=== PATIENT | male | born 1995 | race Caucasian/White ===

== ENCOUNTER 2020-11-28 23:44 | Emergency (ER) | payer SELFPAY ==
[2020-11-28 23:44] VITALS: BP 140/100; PULSE 87; RESP 20; TEMP 36.9; O2SAT 98
[2020-11-29] MEDS: LIDOCAINE HCL 1% LOCAL INJ 20 ML VIAL 10 ML INFILTRATE (00:20)
--- NOTE | 2020-11-29 00:28 | ED.ANIMALBIT ---
HPI - Animal Bite General Chief Complaint: Animal Bite Stated Complaint: Dog Bite Source: patient Mode of arrival: ambulatory History of Present Illness HPI narrative: is a 25-year-old male presents with some avulsions and lacerations to his right middle finger after he tried to break up a dog fight and obtained laceration and avulsion injuries to his right middle finger. There is no numbness or tingling has good range of motion and currently no bleeding. complaint: animal bite Onset (ago): hour(s) Animal: dog Related Data Home Medications Medication Instructions Recorded Confirmed lisinopril 10 mg PO DAILY 11/29/20 11/29/20 Allergies Allergy/AdvReac Type Severity Reaction Status Date / Time No Known Allergies Allergy Verified 11/29/20 00:01 Review of Systems Review of Systems: All systems reviewed & are unremarkable except as noted in HPI and below PMFSH Past Medical History Medical History Patient denies medical problems Exam Const: General: no acute distress and alert Orientation/consciousness: patient oriented x3 HENMT: Head: normal to inspection Eyes: Conjunctivae: conjunctivae normal Pupils: Equal, round and reactive pupils present Neck: Neck: normal visual inspection and no lymphadenopathy Chest: Chest palpation & inspection: normal inspection of the chest Resp: Effort & Inspection: normal respiratory effort Auscultation: clear to auscultation bilaterally Cardio: Rate: regular rate Rhythm: regular rhythm GI: GI Palp: Yes Soft to palpation Back/Spine/Pelvis: Back: no CVA tenderness Skin: Other: laceration to the palmar surface of his right middle finger and in between the the right middle and 4th finger lacerations Neuro: General: patient oriented x3, moves all extremities and no meningeal signs Extrem: General: normal to inspection and no pedal edema Course Course Emergency Course: patient tolerated procedure well had sutures placed in the palmar surface of his right middle finger and in between the right middle and 4th finger Procedures Laceration Laceration 1: Date: 11/29/20 Time: 00:31 Site: hand Side (If applicable): right Size (cm): 3 Description: linear Depth: simple, single layer Local Anesthetic: lidocaine 1% Amount of anesthesia used (mL): 5 Pre-repair: wound explored and irrigated ====== Skin Level ====== Skin layer closed with: vicryl Size (cm): 4-0 Number of sutures: 3 ====== Subcutaneous Layer ====== Number of sutures: 3 Technique: simple, interrupted ====== Muscle Layer ====== Size: 4-0 ====== Tendon Layer ====== Critical Care Time Critical Care Time Critical Care Time: No Discharge Plan Discharge Clinical Impression: Laceration Dog bite Qualifiers: Encounter type: initial encounter Qualified Code(s): W54.0XXA - Bitten by dog, initial encounter Patient Disposition: Home, Self-Care Condition: Stable Instructions: Antibiotic Form, Animal Bite (ED), Laceration (ED) Additional Instructions: follow-up with primary care physician in 1 week for suture removal and wound re-evaluation. Prescriptions: New amoxicillin-pot clavulanate [Augmentin] 875-125 mg tablet 1 tablet PO Q12H Qty: 20 RF: 0 No Action lisinopril 10 mg PO DAILY RF: 0 Follow-up/Referrals: Ila Burleson RN [Primary Care Provider] - Time of Disposition: 00:34
[2020-11-29] MEDS: TETANUS,DIPHTHERIA,AC PERTUSSIS ADULT 0.5 ML (ADACEL) (00:39)
[2020-11-29] MEDS: cefTRIAXone 1 GM VIAL IM (00:40)
[2020-11-29] MEDS: NEOMYCIN/POLYMYXIN/BACITRACIN OINTMENT PACKET 1 PACKET TOPICAL (00:45)
[2020-11-29 00:46] VITALS: BP 146/86; PULSE 87; RESP 20; TEMP 36.6; O2SAT 97
--- NOTE | 2020-11-29 01:23 | PC.NURSE ---
2345-I had patient soak right hand and left hand in sterile water, mixed with hibclense. I scrubbed patient's hand with hibclense and then cleaned the wounds on 3rd and 4th digit with Safe-clense. Patient tolerated well.
--- NOTE | 2020-11-29 01:27 | PC.NURSE ---
0030-I wrapped patients right hand with 3 in conform roll x2, and applied (2) 2x3's and triple antibiotic. Patient tolerated well.
== END 2020-11-29 01:14 | disposition home or self-care (01) ==
PROVIDERS: Emergency Provider Emergency Medicine
DX: S61.212A Laceration without foreign body of right middle finger without damage to nail, initial encounter (principal); W54.0XXA Bitten by dog, initial encounter
CPT/HCPCS: 12042; 90471; 90715; 96372; 99283; J0696

== ENCOUNTER 2021-05-09 08:02 | Emergency (ER) | payer SELFPAY ==
[2021-05-09 08:16] VITALS: BP 154/94; PULSE 74; RESP 18; TEMP 36.6; O2SAT 98
--- NOTE | 2021-05-09 09:07 | ED.BACK ---
HPI - Back Pain/Injury General Chief Complaint: Back Pain/Injury Stated Complaint: PAIN IN BACK LEGS Time Seen by Provider: 05/09/21 09:15 Source: patient Mode of arrival: ambulatory Limitations: no limitations History of Present Illness HPI Narrative: 26-year-old man with history of episodes of sciatica comes in today complaining of left lower back pain that radiates down to his left toes. Patient states that his symptoms started yesterday while he was pushing a stalled car. He has had spasms acute pain that made it hard for him to stand but he has no weakness in his legs, incontinence, numbness in his privates, and has had no recent trauma. Is no history of back surgery. MD elicited complaint: back pain and back injury Pertinent past history: prior back pain Onset (ago): day(s) (1) Timing: constant Severity: severe Similar Symptoms Previously: Yes Quality: sharp Location: lumbar spine Radiation: left leg below the knee Exacerbating factors: walking Relieving factors: other ( rest) Context: bending (and pushing a car) Associated symptoms: parasthesias ( left foot, now resolved) Treatments prior to arrival: NSAIDS (last night) Related Data Home Medications Medication Instructions Recorded Confirmed lisinopril 10 mg PO DAILY 11/29/20 05/09/21 Allergies Allergy/AdvReac Type Severity Reaction Status Date / Time No Known Allergies Allergy Verified 05/09/21 08:52 Review of Systems Cardiovascular: Cardiovascular: Denies chest pain and Denies radiating jaw, neck or arm pain Respiratory: Respiratory: Denies cough Gastrointestinal: Gastrointestinal: Denies abdominal pain, Denies nausea and Denies vomiting Genitourinary: Genitourinary: Denies urinary incontinence Musculoskeletal: Musculoskeletal: Reports back pain, Denies arthralgias and Denies joint swelling Integumentary/Breasts: Skin/Breast: Denies pruritus, Denies erythema and Denies rash Neurologic: Denies focal weakness, Denies numbness and Denies weakness PMFSH Past Medical History Medical History (Updated 05/09/21 @ 09:33 by Ron Hernández MD) Patient denies medical problems Surgical History Surgical History (Updated 05/09/21 @ 09:29 by Ron Hernández MD) History of appendectomy Social History Social History (Updated 05/09/21 @ 09:30 by Ron Hernández MD) Smoking status: Never smoker Alcohol intake: never Substance use type: marijuana Living arrangements: with family Exam Const: General: healthy appearing and alert Orientation/consciousness: patient oriented x3 Limitations: no limitations Other: moderate acute distress. Eyes: Conjunctivae: conjunctivae normal Pupils: Equal, round and reactive pupils present EOM: EOMs intact bilaterally Resp: Effort & Inspection: normal respiratory effort and not labored Auscultation: clear to auscultation bilaterally, no rales, no rhonchi and no wheezes Cardio: Rate: regular rate Rhythm: regular rhythm Heart sounds: no murmurs Skin: General skin exam: normal color, no jaundice and no pallor Rashes: no rashes Neuro: General: patient oriented x3, moves all extremities, no focal motor deficits and CN's II-XI intact bilaterally Speech: normal speech Gait exam (Neuro): Normal gait present Extrem: General: normal to inspection and no clubbing, cyanosis or edema Psych: Appearance: grossly normal and well kempt Mental Status: mental status grossly normal Affect: normal affect Attitude: cooperative Thought content: Yes Normal thought content present Course Vital Signs Vital signs: Vital Signs Temperature 36.6 C 05/09/21 08:16 Pulse Rate 74 05/09/21 08:16 Respiratory Rate 18 05/09/21 08:16 Blood Pressure 154/94 H 05/09/21 08:16 Pulse Oximetry 98 05/09/21 08:16 Temperature 36.6 C 05/09/21 08:16 Pulse Rate 74 05/09/21 08:16 Respiratory Rate 18 05/09/21 08:16 Blood Pressure 154/94 H 05/09/21 08:16 Pulse Oximetry 98 05/09/21 08:16
[2021-05-09] MEDS: KETOROLAC (*BKC) 60 MG/2 ML VIAL IM (09:41)
[2021-05-09] MEDS: HYDROcodone/acetaminophen (*CRX) 5-325 MG TABLET 1 TAB PO (09:41)
== END 2021-05-09 09:45 | disposition home or self-care (01) ==
PROVIDERS: Emergency Provider Emergency Medicine; PCP Family Medicine
DX: S39.012A Strain of muscle, fascia and tendon of lower back, initial encounter (principal); M54.32 Sciatica, left side
CPT/HCPCS: 96372; 99283; A9270; J1885

== ENCOUNTER 2022-02-16 13:05 | Emergency (ER) | payer SELFPAY ==
[2022-02-16 13:05] VITALS: BP 145/77; PULSE 91; RESP 18; TEMP 36.3; O2SAT 99
--- NOTE | 2022-02-16 13:13 | ED.WOUNDLAC ---
HPI - Wound/Laceration General Chief Complaint: Skin/Abscess/Foreign Body Stated Complaint: cut mouth with salt grinder Time Seen by Provider: 02/16/22 13:11 Source: patient and RN notes reviewed Mode of arrival: ambulatory Limitations: no limitations History of Present Illness HPI narrative: a salt grinder kicked back and cut patient face Is just below his left nare down to just barely touching the vermilion border of his left upper lip. Onset (ago): minute(s) (10) Location: face ( under his nose just above the left lip) Place: work Patient tetanus UTD: Yes Context: accidental Associated symptoms: pain Related Data Home Medications Medication Instructions Recorded Confirmed lisinopril 10 mg PO DAILY 11/29/20 02/16/22 lorazepam 1 mg tablet (Ativan) 1 mg PO DAILY PRN Anxiety 02/16/22 02/16/22 Allergies Allergy/AdvReac Type Severity Reaction Status Date / Time No Known Allergies Allergy Verified 02/16/22 13:14 Review of Systems Review of Systems: All systems reviewed & are unremarkable except as noted in HPI and below PMFSH Past Medical History Medical History Patient denies medical problems Surgical History Surgical History History of appendectomy Social History Social History Smoking status: Never smoker Alcohol intake: never Substance use type: marijuana Exam Const: General: healthy appearing, no acute distress and alert Nutritional Appearance: well nourished Orientation/consciousness: patient oriented x3 Limitations: no limitations HENMT: Head: normal to inspection Eyes: Conjunctivae: conjunctivae normal Pupils: Equal, round and reactive pupils present EOM: EOMs intact bilaterally Neck: Neck: normal visual inspection Resp: Effort & Inspection: normal respiratory effort Auscultation: clear to auscultation bilaterally Cardio: Rate: regular rate Rhythm: regular rhythm GI: GI Palp: Yes Soft to palpation and No Tenderness to palpation present (GI) Auscultation: normal bowel sounds Back/Spine/Pelvis: Cervical Spine: cervical ROM normal Thoracic/Lumbar Spine: thoraco-lumbar ROM normal Skin: General skin exam: normal color Rashes: no rashes Wounds: wounds noted incision left lip size (4 cm), drainage bloody and margins well approximated Neuro: General: patient oriented x3, moves all extremities, no focal motor deficits and CN's II-XI intact bilaterally Speech: normal speech Gait exam (Neuro): Normal gait present Extrem: General: normal to inspection and no clubbing, cyanosis or edema Psych: Mental Status: mental status grossly normal Affect: normal affect Attitude: cooperative Course Course Emergency Course: patient offered transfer to a another emergency room for plastics repair and he declined. He wishes to proceed here with closure of the wound. Vital Signs Vital signs: Vital Signs Temperature 36.3 C L 02/16/22 13:05 Pulse Rate 91 02/16/22 13:05 Respiratory Rate 18 02/16/22 13:05 Blood Pressure 145/77 H 02/16/22 13:05 Pulse Oximetry 99 02/16/22 13:05 Oxygen Delivery Room Air 02/16/22 13:05 Temperature 36.6 C 02/16/22 14:22 Pulse Rate 71 02/16/22 14:22 Respiratory Rate 16 02/16/22 14:22 Blood Pressure 125/65 02/16/22 14:22 Pulse Oximetry 100 02/16/22 14:22 Oxygen Delivery Room Air 02/16/22 14:22 Procedures Laceration Laceration 1: Date: 02/16/22 Site: lip Side (If applicable): left Size (cm): 4 Description: linear, contaminated and involves tushar border Depth: involves muscle layer Local Anesthetic: lidocaine 1% Pre-repair: wound explored, irrigated and irrigated extensively ====== Skin Level ====== Skin layer closed with: nylon Size (cm): 5-0 Number of sutures: 9 Technique: david
[2022-02-16] MEDS: LIDOCAINE HCL 1% LOCAL INJ 10 ML VIAL INFILTRATE (13:20)
[2022-02-16 14:22] VITALS: BP 125/65; PULSE 71; RESP 16; TEMP 36.6; O2SAT 100
== END 2022-02-16 14:26 | disposition home or self-care (01) ==
PROVIDERS: Emergency Provider Emergency Medicine; PCP Family Medicine
DX: S01.521A Laceration with foreign body of lip, initial encounter (principal); W27.8XXA Contact with other nonpowered hand tool, initial encounter
CPT/HCPCS: 12052; 99283

== ENCOUNTER 2022-06-15 09:52 | Emergency (ER) | payer SELFPAY ==
[2022-06-15 10:09] VITALS: BP 142/86; PULSE 88; RESP 16; TEMP 36.4; O2SAT 98
--- NOTE | 2022-06-15 10:30 | ED.WOUNDLAC ---
HPI - Wound/Laceration General Chief Complaint: Skin/Abscess/Foreign Body Stated Complaint: Cut on left hand Time Seen by Provider: 06/15/22 09:55 Source: patient and RN notes reviewed Mode of arrival: ambulatory Limitations: no limitations History of Present Illness HPI narrative: patient at work and a piece of glass broke and accidentally cut the back of his left hand. He put up bandage on it and then came here to the emergency room. He denies any numbness or tingling in his fingers and has full range of motion of his fingers. Holding it still makes it better movement of his left hand makes it worse. Onset (ago): hour(s) (1) Extremity Location: Left: hand Place: work Patient tetanus UTD: Yes Context: accidental Associated symptoms: none Treatments prior to arrival: bandage Related Data Home Medications Medication Instructions Recorded Confirmed lisinopril 10 mg PO DAILY 11/29/20 06/15/22 lorazepam 1 mg tablet (Ativan) 1 mg PO DAILY PRN Anxiety 02/16/22 06/15/22 Allergies Allergy/AdvReac Type Severity Reaction Status Date / Time No Known Allergies Allergy Verified 06/15/22 10:13 Review of Systems Review of Systems: All systems reviewed & are unremarkable except as noted in HPI and below PMFSH Past Medical History Medical History (Updated 06/15/22 @ 11:17 by Mervin Walker MD) Hypertension Surgical History Surgical History History of appendectomy Social History Social History Smoking status: Never smoker Alcohol intake: never Substance use type: marijuana Exam Const: General: healthy appearing, no acute distress and alert Nutritional Appearance: well nourished Orientation/consciousness: patient oriented x3 Limitations: no limitations HENMT: Head: normal to inspection Ears: external ears normal Eyes: Conjunctivae: conjunctivae normal Pupils: Equal, round and reactive pupils present EOM: EOMs intact bilaterally Neck: Neck: normal visual inspection Resp: Effort & Inspection: normal respiratory effort Auscultation: clear to auscultation bilaterally Cardio: Rate: regular rate Rhythm: regular rhythm GI: GI Palp: Yes Soft to palpation and No Tenderness to palpation present (GI) Auscultation: normal bowel sounds Back/Spine/Pelvis: Cervical Spine: cervical ROM normal Thoracic/Lumbar Spine: thoraco-lumbar ROM normal Skin: General skin exam: normal color Rashes: no rashes Wounds: wounds noted laceration left dorsal hand Neuro: General: patient oriented x3, moves all extremities, no focal motor deficits and CN's II-XI intact bilaterally Speech: normal speech Gait exam (Neuro): Normal gait present Extrem: General: normal to inspection and no clubbing, cyanosis or edema Psych: Mental Status: mental status grossly normal Affect: normal affect Attitude: cooperative Course Vital Signs Vital signs: Vital Signs Temperature 36.4 C L 06/15/22 10:09 Pulse Rate 88 06/15/22 10:09 Respiratory Rate 16 06/15/22 10:09 Blood Pressure 142/86 H 06/15/22 10:09 Pulse Oximetry 98 06/15/22 10:09 Oxygen Delivery Room Air 06/15/22 10:09 Temperature 36.7 C 06/15/22 11:28 Pulse Rate 70 06/15/22 11:28 Respiratory Rate 16 06/15/22 11:28 Blood Pressure 130/85 06/15/22 11:28 Pulse Oximetry 97 06/15/22 11:28 Oxygen Delivery Room Air 06/15/22 11:28 Procedures Laceration Laceration 1: Site: hand (dorsal) Side (If applicable): left Size (cm): 4 Description: linear Depth: involves muscle layer Local Anesthetic: lidocaine 1% Amount of anesthesia used (mL): 8 Pre-repair: wound explored and irrigated ====== Skin Level ====== Skin layer closed with: nylon Size (cm): 4-0 Number of sutures: 9 Technique: running ====== Subcutaneous Layer ====== Subcutaneous
--- NOTE | 2022-06-15 10:58 | PC.NURSE ---
at bedside suturing
[2022-06-15 11:28] VITALS: BP 130/85; PULSE 70; RESP 16; TEMP 36.7; O2SAT 97
== END 2022-06-15 11:28 | disposition home or self-care (01) ==
PROVIDERS: Emergency Provider Emergency Medicine; PCP Family Medicine
DX: S61.412A Laceration without foreign body of left hand, initial encounter (principal); I10 Essential (primary) hypertension; W25.XXXA Contact with sharp glass, initial encounter
CPT/HCPCS: 12042; 99282